=== PATIENT | female | born 2000 | race Hispanic/Latino ===

== ENCOUNTER 2025-02-27 10:28 | Inpatient (IN) | payer OTHER ==
[2025-02-27 11:03] VITALS: BMI 28.3
[2025-02-27] MEDS ORDERED: Methylergonovine 0.2 MG/ML VIAL IM PRN (11:41)
[2025-02-27] MEDS ORDERED: Lidocaine 1% (PF) 30 ML VIAL SC PRN (11:41)
[2025-02-27] MEDS ORDERED: Carboprost 250 MCG/ML AMP IM PRN (11:41)
[2025-02-27] MEDS ORDERED: Ibuprofen 800 MG TAB PO PRN (11:41)
[2025-02-27] MEDS ORDERED: hydrALAZINE 20 MG/ML VIAL SLOW IVP PRN (11:41)
[2025-02-27] MEDS ORDERED: Tranexamic Acid 1,000 MG/10 ML VIAL IVP PRN (11:41)
[2025-02-27] MEDS ORDERED: HYDROcodone/Acetaminophen 5/325 mg Tablet PO PRN (11:41)
[2025-02-27] MEDS ORDERED: Acetaminophen 500 MG TAB PO PRN (11:41)
[2025-02-27] MEDS ORDERED: Oxytocin 30 units/NS 500 ML 500 ML IV SCH ×2 (11:45)
[2025-02-27 15:18] LABS: Hematocrit 28.9 % (34.9-44.5); Hemoglobin 9.9 g/dL (12.0-15.5); Mean Corpuscular Hemoglobin 32.1 pg (27.0-33.0); Mean Corpuscular Volume 93.8 fL (81.6-98.3); Platelet Count 166 10x3/uL (150-450); Red Blood Cell (RBC) Count 3.08 10x6/uL (3.90-5.03); White Blood Cell (WBC) Count 7.65 10x3/uL (3.5-10.5)
[2025-02-27 16:04] LABS: Syphilis Antibody Index 0.05 S/CO (<1.00 Non-Reactive)
[2025-02-27 16:06] LABS: Hep B Surf Ag - L&D Non-Reactive S/CO (NonReactive)
[2025-02-27] MEDS: fentaNYL/Ropivacaine Epidural 100 ML ONE (23:25)
[2025-02-27] MEDS ORDERED: Ondansetron PF 4 MG/2 ML Vial IVP PRN (23:26)
[2025-02-27] MEDS ORDERED: diphenhydrAMINE 50 MG/ML VIAL IVP PRN (23:26)
[2025-02-27] MEDS ORDERED: Acetaminophen 325 MG TAB PO PRN (23:26)
[2025-02-27] MEDS ORDERED: Communication Order-Pharmacy FS SCH (23:30)
[2025-02-28] MEDS: fentaNYL 2 mcg/Ropivacaine 0.2% Epidural 100 ML CADD EPIDURAL SCH (11:12)
[2025-02-28] MEDS: Ondansetron PF 4 MG/2 ML Vial IVP PRN (12:16)
[2025-02-28 12:54] LABS: #Basophils 0.03 10x3/uL (0.0-0.2); #Eosinophils Less than 0.03 10x3/uL (0.0-0.5); #Monocytes 0.50 10x3/uL (0.0-1.1); #Neutrophils 8.69 10x3/uL (1.5-8.4); %Basophils 0.3 % (0.0-2.0); %Eosinophils 0.2 % (0.0-6.0); %Lymphocytes 15.8 % (18.0-47.0); %Monocytes 4.5 % (0.0-10.0); %Neutrophils 78.2 % (40.0-75.0); Hematocrit 31.7 % (34.9-44.5); Hemoglobin 10.6 g/dL (12.0-15.5); Mean Corpuscular Hemoglobin 31.9 pg (27.0-33.0); Mean Corpuscular Volume 95.5 fL (81.6-98.3); Platelet Count 151 10x3/uL (150-450); Red Blood Cell (RBC) Count 3.32 10x6/uL (3.90-5.03); White Blood Cell (WBC) Count 11.11 10x3/uL (3.5-10.5)
[2025-02-28] MEDS: Diphenoxylate HCl/Atropine Tablet PO PRN (13:47)
[2025-02-28] MEDS ORDERED: Ketorolac Tromethamine 30 MG (1 mL) VIAL IVP PRN (13:51)
[2025-02-28] MEDS ORDERED: diphenhydrAMINE 50 MG/ML VIAL IVP PRN (13:51)
[2025-02-28] MEDS ORDERED: HYDROmorphone 0.5 MG/0.5 ML SYRINGE SLOW IVP PRN (13:51)
[2025-02-28] MEDS ORDERED: Ondansetron PF 4 MG/2 ML Vial IVP PRN ×3 (13:51→15:47)
[2025-02-28] MEDS ORDERED: Meperidine HCl/PF 25 MG (1 mL) VIAL SLOW IVP PRN (13:51)
[2025-02-28] MEDS ORDERED: Ketorolac Tromethamine 30 MG (1 mL) VIAL IVP SCH (14:00)
[2025-02-28] MEDS ORDERED: Communication Order-Pharmacy FS SCH (14:00)
[2025-02-28] MEDS ORDERED: Bisacodyl 10 MG SUPP PR PRN (15:47)
[2025-02-28] MEDS ORDERED: Lanolin Ointment 7 GM TUBE TOP PRN (15:47)
[2025-02-28] MEDS ORDERED: hydrALAZINE 20 MG/ML VIAL SLOW IVP PRN (15:47)
[2025-02-28] MEDS ORDERED: diphenhydrAMINE 25 MG CAP PO PRN (15:47)
[2025-02-28] MEDS: Ferrous Sulfate 325 MG TAB PO SCH (20:10)
[2025-02-28] MEDS: Ketorolac Tromethamine 30 MG (1 mL) VIAL IVP SCH (20:10)
[2025-03-01] MEDS: CEFAZOLIN 2 GM VIAL ONE (00:52)
[2025-03-01] MEDS: Methylergonovine 0.2 MG/ML VIAL ONE (00:53)
[2025-03-01] MEDS: Erythromycin Base 0.5% Oint 1 GM TUBE ONE (00:53)
[2025-03-01] MEDS: Tranexamic Acid 1,000 MG/10 ML VIAL ONE (00:53)
[2025-03-01] MEDS: Carboprost 250 MCG/ML AMP ONE (00:53)
[2025-03-01] MEDS: Oxytocin 10 UNITS/ML VIAL ONE (00:54)
[2025-03-01] MEDS: Dexamethasone 10 MG/ML VIAL ONE (00:54)
[2025-03-01] MEDS: Ondansetron PF 4 MG/2 ML Vial ONE (00:54)
[2025-03-01] MEDS ORDERED: HYDROcodone/Acetaminophen 5/325 mg Tablet PO PRN ×2 (02:00)
[2025-03-01] MEDS ORDERED: Meperidine HCl/PF 25 MG (1 mL) VIAL IM PRN (02:00)
[2025-03-01 04:24] LABS: Hematocrit 21.7 % (34.9-44.5); Hemoglobin 7.4 g/dL (12.0-15.5); Mean Corpuscular Hemoglobin 32.2 pg (27.0-33.0); Mean Corpuscular Volume 94.3 fL (81.6-98.3); Platelet Count 124 10x3/uL (150-450); Red Blood Cell (RBC) Count 2.30 10x6/uL (3.90-5.03); White Blood Cell (WBC) Count 15.56 10x3/uL (3.5-10.5)
[2025-03-01 12:22] LABS: Hematocrit 22.3 % (34.9-44.5); Hemoglobin 7.6 g/dL (12.0-15.5)
[2025-03-01] MEDS: Ibuprofen 800 MG TAB PO SCH (14:05)
[2025-03-01] MEDS ORDERED: Bupivacaine 0.25% HCL 30 ML VIAL ONE (19:20)
[2025-03-01] MEDS ORDERED: Lidocaine 2% MPF 10 ML AMP (For Epidural Use) ONE (19:20)
[2025-03-01] MEDS: Simethicone Chewable 80 MG TAB PO PRN (23:31)
[2025-03-02] MEDS: Hepatitis B Vaccine 10 MCG/0.5 ML SYR ONE (07:19)
[2025-03-02] MEDS: Boostrix 0.5 ML (Tdap) VIAL (>/=7 yrs of age) IM ONE (07:19)
[2025-03-03 08:41] VITALS: BP 102/72; TEMP 98.3
== END 2025-03-03 13:05 | disposition home or self-care (01) | DRG 786 ==
LOC: CSHLD 10:28 → CSHPP 02-28 16:10
PROVIDERS: ADMIT Family Medicine; ATTEND Family Medicine
PROC: 10D00Z1 Extraction of Products of Conception, Low, Open Approach (ICD-10-PCS; principal; 2025-02-27)
PROC: 3E0DXGC Introduction of Other Therapeutic Substance into Mouth and Pharynx, External Approach (ICD-10-PCS; 2025-02-27)
PROC: 10H07YZ Insertion of Other Device into Products of Conception, Via Natural or Artificial Opening (ICD-10-PCS; 2025-02-27)
PROC: 4A1HXCZ Monitoring of Products of Conception, Cardiac Rate, External Approach (ICD-10-PCS; 2025-02-27)
PROC: 3E03329 Introduction of Other Anti-infective into Peripheral Vein, Percutaneous Approach (ICD-10-PCS; 2025-02-28)
DX: O26.643 Intrahepatic cholestasis of pregnancy, third trimester (principal); O41.1230 Chorioamnionitis, third trimester, not applicable or unspecified; O26.893 Other specified pregnancy related conditions, third trimester; O32.4XX0 Maternal care for high head at term, not applicable or unspecified; O76 Abnormality in fetal heart rate and rhythm complicating labor and delivery; O99.892 Other specified diseases and conditions complicating childbirth; R00.0 Tachycardia, unspecified; Z3A.38 38 weeks gestation of pregnancy; Z79.899 Other long term (current) drug therapy; Z79.82 Long term (current) use of aspirin; Z37.0 Single live birth
CPT/HCPCS: 36415; 51702; 83605; 85025; 85027; 86780; 86850; 86900; 86901; 87040; 87340; 88307; 93005; 93010; C1889; J0290; J0665; J1100; J1580; J1885; J2250; J2274; J2590; J7120